=== PATIENT | male | born 1940 | race African-American/Black ===

== ENCOUNTER 2019-06-03 10:12 | Emergency (ER) | payer OTHER ==
[2019-06-03 10:44] LABS: Absolute Lymphocytes (CBC) 0.8 K/uL (0.7-4.9); Basophils % 0.7 % (0-1.3); Hematocrit 41.6 % (39.6-49.0); Lymphocytes % 20.6 % (15.3-44.8); MPV 8.3 fL (7.6-11.3); RBC Red Blood Cell Count 4.59 M/uL (4.33-5.43)
[2019-06-03 10:47] LABS: Protime INR 0.91
--- NOTE | 2019-06-03 10:59 | RAD REPORT ---
EXAM DESCRIPTION: David Single View06/03/2019 10:49 am CLINICAL HISTORY: Chest pain COMPARISON: 2012 FINDINGS: The lungs appear clear of acute infiltrate. The heart is normal size. Aorta is tortuous/ectatic IMPRESSION: No acute abnormalities displayed
[2019-06-03 11:03] LABS: ALT/SGPT 24 U/L (12-78); AST/SGOT 21 U/L (15-37); Alkaline Phosphatase 86 U/L (45-117); BUN Blood Urea Nitrogen 17 mg/dL (7-18); Bicarbonate 29 mmol/L (21-32); Bilirubin Direct 0.1 mg/dL (0-0.2); Bilirubin Total 0.4 mg/dL (0.2-1.0); Glucose Level 97 mg/dL (74-106); Magnesium 2.1 mg/dL (1.8-2.4); NT PRO-BNP 19 pg/mL (<450); Potassium 3.8 mmol/L (3.5-5.1); Protein, Total 8.6 g/dL (6.4-8.2); Sodium Level 141 mmol/L (136-145); Troponin (Emerg Dept Use Only) < 0.02 ng/mL (0.0-0.045)
--- NOTE | 2019-06-03 11:56 | RAD REPORT ---
EXAM DESCRIPTION: CT - Angio Aorta For Dissection - 06/03/2019 11:42 am CLINICAL HISTORY: Chest pain radiating to the back. CHEST PAIN COMPARISON: THORAX W CONTRAST dated 11/12/2012; Chest Single View dated 06/03/2019 TECHNIQUE: CT angiography of the aorta was performed with MIPs. All CT scans are performed using dose optimization technique as appropriate and may include automated exposure control or mA/KV adjustment according to patient size. FINDINGS: A left aortic arch is present with bovine branching pattern of the great vessels.No acute aortic finding is seen such as aneurysm, penetrating ulcer or dissection. The celiac axis, SMA, NILES and renal arteries demonstrate mild atheromatous plaquing at the origins but are patent. Main pulmonary artery appears mildly enlarged measuring 4.7 cm, which could indicate pulmonary arteri al hypertension. No pulmonary embolism is seen. Mild linear subsegmental atelectasis is present in the right lung base. No focal infiltrate detected. Multiple small liver cysts are present.No aggressive liver lesion or biliary dilatation. Cholelithias is.The spleen, pancreas, adrenal glands and kidneys are within normal limits for arterial phase imagi ng. No bowel obstruction, free fluid or abscess.Normal appendix.No pathologic enlarged lymphadenopathy id entified.Small fat containing right inguinal hernia. Moderate lumbar degenerative changes. IMPRESSION: No acute aortic finding is demonstrated. Pulmonary arterial hypertension is a possibility.
--- NOTE | 2019-06-03 12:04 | ER ---
Nurse's Notes [facility] Name: Joe Mckay Age: 79 yrs Sex: Male : 1940 Arrival Date: 06/03/2019 Time: 10:13 Bed 17 Private MD: Diagnosis: Chest pain, unspecified;Cholelithiasis Presentation: 06/03 10:14 Presenting complaint: Patient states: midsternal chest pain since last night. Denies sv SOB. [facility], [facility] was done over there. Transition of care: patient was not received from another setting of care. Onset of symptoms was June 02, 2019. Risk Assessment: Do you want to hurt yourself or someone else? Patient reports no desire to harm self or others. Care prior to arrival: Medication(s) given: ASA, 325 mg. 10:14 Method Of Arrival: Ambulatory sv 10:14 Acuity: ROBB 2 sv 10:51 Initial Sepsis Screen: Does the patient meet any 2 criteria? No. Patient's initial ca1 sepsis screen is negative. Does the patient have a suspected source of infection? No. Patient's initial sepsis screen is negative. Historical: - Allergies: 10:15 No Known Allergies; sv - PMHx: 10:15 Hypertension; sv - PSHx: 10:15 None; sv - Immunization history:: Adult Immunizations up to date. - Social history:: Smoking status: Patient/guardian denies using tobacco. - Ebola Screening: : Patient negative for fever greater than or equal to 101.5 degrees Fahrenheit, and additional compatible Ebola Virus Disease symptoms Patient denies exposure to infectious person Patient denies travel to an Ebola-affected area in the 21 days before illness onset No symptoms or risks identified at this time. Screenin:20 Abuse screen: Denies threats or abuse. Denies injuries from another. Nutritional ca1 screening: No deficits noted. Tuberculosis screening: No symptoms or risk factors identified. Fall Risk IV access (20 points). Assessment: 10:20 General: Appears in no apparent distress. comfortable, Behavior is calm, cooperative, ca1 appropriate for age. Pain: Complains of pain in mid-sternal area Pain does not radiate. Pain currently is 0 out of 10 on a pain scale. at worst was 8 out of 10 on a pain scale. Quality of pain is described as pressure, Pain began 1 day ago. Is intermittent, Also complains of no other associated symptoms. Neuro: Level of Consciousness is awake, alert, obeys commands, Oriented to person, place, time, situation, Appropriate for age. Cardiovascular: Heart tones S1 S2 present Capillary refill < 3 seconds Patient's skin is warm and dry. Rhythm is sinus rhythm. Respiratory: Airway is patent Respiratory effort is even, unlabored, Respiratory pattern is regular, symmetrical, Breath sounds are clear bilaterally. GI: Abdomen is flat, non-distended, Bowel sounds present X 4 quads. Abd is soft and non tender X 4 quads. : No deficits noted. No signs and/or symptoms were reported regarding the genitourinary system. EENT: No deficits noted. No signs and/or symptoms were reported regarding the EENT system. Derm: Skin is intact, is healthy with good turgor, Skin is pink, warm \T\ dry. Musculoskeletal: Circulation, motion, and sensation intact. Capillary refill < 3 seconds. 11:22 Reassessment: Patient appears in no apparent distress at this time. Patient and/or ca1 family updated on plan of care and expected duration. Pain level reassessed. Patient is alert, oriented x 3, equal unlabored respirations, skin warm/dry/pink. 12:25 Reassessment: Patient appears in no apparent distress at this time. Patient is alert, ca1 oriented x 3, equal unlabored respirations, skin warm/dry/pink. Vital Signs: 10:14 Temp 97.5; sv 10:15 BP 167 / 93; Pulse 77; Resp 16; Pulse Ox 100% ; Weight 63.5 kg; Height 5 ft. 10 in. sv (177.80 cm); 11:22 BP 146 / 86; Pulse 71; Resp 18 S; Pulse Ox 98% on R/A; ca1 12:25 BP 135 / 87; Pulse 69; Resp 17 S; Pulse Ox 98% on R/A; ca1 10:15 Body Mass Index 20.09 (63.50 kg, 177.80 cm) sv ED Course: 10:13 Patient arrived in ED. as 10:15 Triage completed. sv 10:16 Arm band placed on. sv 10:18 Flaca Galarza, AKIKO is Primary Nurse. ca1 10:20 Patient has correct armband on for positive identification. Placed in gown. Bed in low ca1 position. Call light in reach. Side rails up X 1. school lunch monitor on. Pulse ox on. NIBP on. Warm blanket given. 10:30 Lashonda Schaffer F[facility]-C is [facility]. snw 10:30 Lc Waggoner MD is Attending Physician. snw 10:31 Inserted saline lock: 22 gauge in right antecubital area, using aseptic technique. ca1 Blood collected. 10:31 Initial lab(s) drawn, by me, sent to lab. ca1 10:48 No provider procedures requiring assistance completed. ca1 10:49 XRAY Chest (1 view) In Process Unspecified. EDMS 11:42 CT Aorta for Dissection In Process Unspecified. EDMS 12:43 IV discontinued, intact, bleeding controlled, No redness/swelling at site. Pressure ca1 dressing applied. Administered Medications: No medications were administered Outcome: 12:03 Discharge ordered by . snw 12:43 Discharged to home ambulatory. ca1 12:43 Condition: stable 12:43 Discharge instructions given to patient, Instructed on discharge instructions, follow up and referral plans. medication usage, Demonstrated understanding of instructions, follow-up care, medications, Prescriptions given X 1. 12:44 Patient left the ED. ca1 Signatures: Dispatcher [employer] Lizz Olson, RN RN Lashonda Schaffer FNP-C FNP-Alessandra Bella as Flaca Galarza RN RN ca1 Corrections: (The following items were deleted from the chart) 10:16 10:14 Acuity: ROBB 3 sv sv 10:18 10:14 Presenting complaint: Patient states: midsternal chest pain since last night. sv sv 10:18 10:14 Care prior to arrival: None. sv sv 10:48 10:48 No provider procedures requiring assistance completed. ca1 ca1 10:48 10:48 Inserted saline lock: ca1 ca1
--- NOTE | 2019-06-03 12:04 | EDPHYS ---
Physician Documentation [facility] Name: Joe Mckay Age: 79 yrs Sex: Male : 1940 Arrival Date: 06/03/2019 Time: 10:13 Bed 17 Private MD: ED Physician Lc Waggoner HPI: 06/03 11:35 This 79 yrs old Black Male presents to ER via Ambulatory with complaints of Chest Pain. snw 11:35 Onset: The symptoms/episode began/occurred acutely. Associated signs and symptoms: The snw patient has no apparent associated signs or symptoms. Modifying factors: The patient symptoms are alleviated by ibuprofen, rest, awoke with soreness but "nothing like last night". The patient has experienced a previous episode, approximately 30 years ago. went to [place] [facility] this am and was sent for evaluation. Historical: - Allergies: 10:15 No Known Allergies; sv - PMHx: 10:15 Hypertension; sv - PSHx: 10:15 None; sv - Immunization history:: Adult Immunizations up to date. - Social history:: Smoking status: Patient/guardian denies using tobacco. - Ebola Screening: : Patient negative for fever greater than or equal to 101.5 degrees Fahrenheit, and additional compatible Ebola Virus Disease symptoms Patient denies exposure to infectious person Patient denies travel to an Ebola-affected area in the 21 days before illness onset No symptoms or risks identified at this time. ROS: 11:34 Constitutional: Negative for fever, chills, and weight loss, Eyes: Negative for injury, snw pain, redness, and discharge, ENT: Negative for injury, pain, and discharge, Neck: Negative for injury, pain, and swelling, Respiratory: Negative for shortness of breath, cough, wheezing, and pleuritic chest pain, Abdomen/GI: Negative for abdominal pain, nausea, vomiting, diarrhea, and constipation, Back: Negative for injury and pain, : Negative for injury, bleeding, discharge, and swelling, MS/Extremity: Negative for injury and deformity, Skin: Negative for injury, rash, and discoloration, Neuro: Negative for headache, weakness, numbness, tingling, and seizure, Psych: Negative for depression, anxiety, suicide ideation, homicidal ideation, and hallucinations. 11:34 Cardiovascular: Positive for chest pain, "felt like I got hit in the chest with an axe". Exam: 11:34 Constitutional: This is a well developed, well nourished patient who is awake, alert, snw and in no acute distress. Head/Face: Normocephalic, atraumatic. Eyes: Pupils equal round and reactive to light, extra-ocular motions intact. Lids and lashes normal. Conjunctiva and sclera are non-icteric and not injected. Cornea within normal limits. Periorbital areas with no swelling, redness, or edema. ENT: Nares patent. No nasal discharge, no septal abnormalities noted. Tympanic membranes are normal and external auditory canals are clear. Oropharynx with no redness, swelling, or masses, exudates, or evidence of obstruction, uvula midline. Mucous membranes moist. Neck: Trachea midline, no thyromegaly or masses palpated, and no cervical lymphadenopathy. Supple, full range of motion without nuchal rigidity, or vertebral point tenderness. No Meningismus. Chest/axilla: Normal chest wall appearance and motion. Nontender with no deformity. No lesions are appreciated. Cardiovascular: Regular rate and rhythm with a normal S1 and S2. No gallops, murmurs, or rubs. Normal PMI, no JVD. No pulse deficits. Respiratory: Lungs have equal breath sounds bilaterally, clear to auscultation and percussion. No rales, rhonchi or wheezes noted. No increased work of breathing, no retractions or nasal flaring. Abdomen/GI: Soft, non-tender, with normal bowel sounds. No distension or tympany. No guarding or rebound. No evidence of tenderness throughout. Back: No spinal tenderness. No costovertebral tenderness. Full range of motion. Skin: Warm, dry with normal turgor. Normal color with no rashes, no lesions, and no evidence of cellulitis. MS/ Extremity: Pulses equal, no cyanosis. Neurovascular intact. Full, normal range of motion. Neuro: Awake and alert, GCS 15, oriented to person, place, time, and situation. Cranial nerves II-XII grossly intact. Motor strength 5/5 in all extremities. Sensory grossly intact. Cerebellar exam normal. Normal gait. Psych: Awake, alert, with orientation to person, place and time. Behavior, mood, and affect are within normal limits. Vital Signs: 10:14 Temp 97.5; sv 10:15 BP 167 / 93; Pulse 77; Resp 16; Pulse Ox 100% ; Weight 63.5 kg; Height 5 ft. 10 in. sv (177.80 cm); 11:22 BP 146 / 86; Pulse 71; Resp 18 S; Pulse Ox 98% on R/A; ca1 12:25 BP 135 / 87; Pulse 69; Resp 17 S; Pulse Ox 98% on R/A; ca1 10:15 Body Mass Index 20.09 (63.50 kg, 177.80 cm) sv MDM: 10:37 Patient medically screened. julian 11:54 Data reviewed: vital signs, nurses notes. Data interpreted: Pulse oximetry: on room air snw is 98 %. Counseling: I had a detailed discussion with the patient and/or guardian regarding: the historical points, exam findings, and any diagnostic results supporting the discharge/admit diagnosis, the presence of at least one elevated blood pressure reading (>120/80) during this emergency department visit, lab results, radiology results, the need for further work-up and treatment in the hospital. Refusal of service: The patient/guardian displays adequate decision making capability and despite a detailed discussion of alternatives, benefits, risks, and consequences refuses: Admission to the hospital for further work-up and treatment. 11:59 Special discussion: Based on the patient's history, exam, and Dx evaluation, there is snw no indication for emergent intervention or inpatient Tx. It is understood by the patient/guardian that if the Sx's persist or worsen they need to return immediately for re-evaluation. I have referred the patient to see his PCP for further evaluation of high blood pressure. Based on the history and exam findings, there is no indication for further emergent testing or inpatient evaluation. I discussed with the patient/guardian the need to see the financial institution branch manager for further evaluation of the symptoms. I discussed with the patient/guardian the need to see the primary care provider for further evaluation of the symptoms. pt does not wish to be transferred to [place] or admitted locally. Risks discussed and pt voices understanding. Would like to be discharged at this time. Return precautions given. . 06/03 10:19 Order name: Basic Metabolic Panel; Complete Time: 11:23 ca1 06/03 10:19 Order name: CBC with Diff; Complete Time: 10:50 ca1 06/03 10:19 Order name: LFT's; Complete Time: 11:23 06/03 10:19 Order name: Magnesium; Complete Time: 11:23 06/03 10:19 Order name: NT PRO-BNP; Complete Time: 11:23 06/03 10:19 Order name: PT-INR; Complete Time: 10:51 ca1 06/03 10:19 Order name: Troponin (emerg Dept Use Only); Complete Time: 11:23 ca1 06/03 10:19 Order name: XRAY Chest (1 view); Complete Time: 11:23 06/03 10:19 Order name: EKG; Complete Time: 10:22 ca1 06/03 10:19 Order name: Cardiac monitoring; Complete Time: 10:48 ca1 06/03 10:19 Order name: EKG - Nurse/Tech; Complete Time: 10:48 06/03 10:19 Order name: IV Saline Lock; Complete Time: 10:48 ca1 06/03 10:19 Order name: Labs collected and sent; Complete Time: 10:48 ca1 06/03 11:24 Order name: CT Aorta for Dissection; Complete Time: 11:58 snw 06/03 10:19 Order name: O2 Per Protocol; Complete Time: 10:48 ca1 06/03 10:19 Order name: O2 Sat Monitoring; Complete Time: 10:48 ca1 Administered Medications: No medications were administered Disposition: 16:46 Co-signature as Attending Physician, Lc Waggoner MD I agree with the assessment and [facility] plan of care. Disposition: 06/03/19 12:03 Discharged to Home. Impression: Chest pain, unspecified, Cholelithiasis. - Condition is Stable. - Discharge Instructions: Nonspecific Chest Pain, Fat and Cholesterol Restricted Diet, Hypertension, Cholelithiasis, Aspirin and Your Heart. - Prescriptions for Bentyl 20 mg Oral Tablet - take 1 tablet by ORAL route every 6 hours As needed; 20 tablet. - Medication Reconciliation Form, Thank You Letter, Antibiotic Education, Prescription Opioid Use form. - Follow up: Emergency Department; When: As needed; Reason: Worsening of condition. Follow up: Private Physician; When: 2 - 3 days; Reason: Recheck today's complaints, Continuance of care. Signatures: Dispatcher [employer] Lizz Olson RN RN sv Anderson, Corey, MD MD cha Therrien, Shelly, BUTCHER'S ASSISTANT-C BUTCHER'S ASSISTANT-Csnw Flaca Galarza RN RN ca1 Corrections: (The following items were deleted from the chart) 12:44 12:03 06/03/2019 12:03 Discharged to Home. Impression: Chest pain, unspecified; ca1 Cholelithiasis. Condition is Stable. Forms are Medication Reconciliation Form, Thank You Letter, Antibiotic Education, Prescription Opioid Use. Follow up: Emergency Department; When: As needed; Reason: Worsening of condition. Follow up: Private Physician; When: 2 - 3 days; Reason: Recheck today's complaints, Continuance of care. snw
[2019-06-03 12:52] VITALS: TEMP 97.5
[2019-06-03 12:54] VITALS: O2SAT 98
[2019-06-03 12:55] VITALS: BP 135/87
--- NOTE | 2019-06-03 14:43 | EKG ---
Test Date: 2019-06-03 Test Time: 10:32:18 Crisis Therapist: TT MEASUREMENT RESULTS: Intervals: Rate: 74 [place]: 188 QRSD: 102 QT: 392 QTc: 435 [place]: P: 59 [place]: 188 QRS: 42 T: 57 INTERPRETIVE STATEMENTS: Normal sinus rhythm Normal ECG Compared to ECG 12/02/2000 11:03:00 Sinus bradycardia no longer present Left ventricular hypertrophy no longer present T-wave abnormality no longer present Electronically Signed On 06-03-19 14:42:41 CONSUMER RELATIONS COMPLAINT CLERK by Dajuan Alcaraz
== END 2019-06-03 12:44 | disposition home or self-care (01) ==
LOC: ER 10:12
DX: K80.20 Calculus of gallbladder without cholecystitis without obstruction (principal); I10 Essential (primary) hypertension
CPT/HCPCS: 93005; 85025; 80048; 36415; 83735; 85610; 80076; 84484; 83880; 71275; 74175; 71045; 99284; Q9967

== ENCOUNTER 2024-09-17 10:40 | Emergency (ER) | payer OTHER, SELFPAY ==
[2024-09-17] MEDS ORDERED: NA CHLORIDE 0.9% 1,000 ML ONE (11:26)
[2024-09-17] MEDS ORDERED: ONDANSETRON 4 MG/2 ML VIAL ONE (11:26)
[2024-09-17] MEDS ORDERED: FAMOTIDINE 20 MG/2 ML VIAL IV ONE (11:26)
[2024-09-17] MEDS ORDERED: ACETAMINOPHEN 325 MG TABLET ONE (11:26)
[2024-09-17 11:32] LABS: Absolute Lymphocytes (CBC) 0.6 K/uL (0.7-4.9); Absolute Monocytes 0.5 K/uL (0.1-1.3); Absolute Neutrophil 3.2 K/uL (1.8-8.0); Basophils % 0.8 % (0-1.3); Eosinophils % 1.1 % (0-4.4); Hemoglobin 13.2 g/dL (13.6-17.9); Lymphocytes % 13.3 % (15.3-44.8); MCH 31.2 pg (27.0-35.0); MCHC 34.6 g/dL (32.0-36.0); MCV 90.3 fL (80-100); MPV 7.3 fL (7.6-11.3); Monocytes % 12.1 % (3.3-12.3); Neutrophils % 72.7 % (41.7-73.7); Nucleated Red Blood Cells % 0.1 % (0-0); Platelets 244 thou/uL (152-406); RBC Red Blood Cell Count 4.21 M/uL (4.33-5.43); Red Cell Distribution Width 13.7 % (12.1-15.2)
[2024-09-17 11:51] LABS: Specific Gravity > 1.030 (1.005-1.030); Sqamous Epithelial <5 /HPF (None Seen); Urine Bacteria None Seen /HPF (<20); Urine Bilirubin NEGATIVE (Negative); Urine Blood Negative (Negative); Urine Clarity Clear (Clear); Urine Color Yellow (Yellow); Urine Culture Reflex Order NOT NEEDED; Urine Glucose 4+ (Over) (Negative); Urine Ketones NEGATIVE (Negative); Urine Microscopic Reflex YN ORDER UMIC; Urine Mucus Slight /HPF (None Seen); Urine Nitrite NEGATIVE (Negative); Urine Protein TRACE (Negative); Urine RBC <5 /HPF (None Seen); Urine Urobilinogen Normal (Normal); Urine WBC <5 /HPF (<5); Urine pH 5.5 (5.0-7.0)
[2024-09-17 12:49] LABS: Albumin 3.3 g/dL (3.4-5.0); Albumin/Globulin Ratio 0.8 (1.1-1.8); Anion Gap 9.3 mEq/L (5.0-15.0); Bilirubin Total 0.3 mg/dL (0.2-1.0); Potassium 3.3 mEq/L (3.5-5.1); Protein, Total 7.3 g/dL (6.4-8.2)
--- NOTE | 2024-09-17 13:29 | RAD REPORT ---
EXAMINATION: CT ABDOMEN AND PELVIS WITH CONTRAST CLINICAL INDICATION: ABD PAIN TECHNIQUE: CT abdomen and pelvis was performed, after the administration of IV contrast, as per [facility] protocol. Axial, sagittal and coronal reconstructions were obtained. One or more of the following dose reduction techniques were used: Automated exposure control, adjustment of the mA and k V according to patient size, and iterative reconstruction. Unless otherwise specified, incidental findings do not require dedicated imaging follow-up. COMPARISON: No prior exam. FINDINGS: LOWER CHEST: Mild linear atelectasis in both lung bases. LIVER: Multiple low-density liver lesions are present favoring multiple cysts. No aggressive liver le sions seen. Cholelithiasis. SPLEEN: Normal size. No focal lesion. PANCREAS: No mass, ductal dilation, or oliver-pancreatic fluid. ADRENALS: Normal; no mass. KIDNEYS: Normal size and contour. No hydronephrosis. GASTROINTESTINAL TRACT: No evidence of free air, significant intra-abdominal free fluid, bowel obstru ction or abscess. APPENDIX: Normal appendix. LYMPH NODES: No lymphadenopathy. MUSCULOSKELETAL: Moderate multilevel lumbar degenerative changes. ADDITIONAL FINDINGS: Small fat-containing right inguinal hernia. IMPRESSION: No acute or concerning abnormalities seen in the abdomen or pelvis. Cholelithiasis. Small fat-containing right inguinal hernia.
--- NOTE | 2024-09-17 13:32 | ER ---
Nurse's Notes [facility] Name: Joe Mckay Age: 84 yrs Sex: Male : 1940 Arrival Date: 09/17/2024 Time: 10:40 Bed 16 Private MD: Diagnosis: Unilateral inguinal hernia, without obstruction or gangrene, not specified as recurrent;Abdominal pain, unspecified;Other cholelithiasis without obstruction Presentation: 09/17 10:57 Chief complaint: Patient states: Noticed a lump to R groin 2-3 days ago. Coronavirus ss screen: Client denies travel out of the [place] in the last 14 days. Ebola Screen: Patient denies exposure to infectious person. Patient denies travel to an Ebola-affected area in the 21 days before illness onset. Initial Sepsis Screen: Does the patient meet any 2 criteria? No. Patient's initial sepsis screen is negative. Does the patient have a suspected source of infection? No. Patient's initial sepsis screen is negative. Risk Assessment: Do you want to hurt yourself or someone else? Patient reports no desire to harm self or others. Onset of symptoms was September 16, 2024. 10:57 Method Of Arrival: Ambulatory ss 10:57 Acuity: ROBB 3 ss Historical: - Allergies: 10:58 No Known Allergies; ss - PMHx: 10:58 Hypertension; Diabetes mellitus; high cholesterol; ss - PSHx: 10:58 None; ss - Immunization history:: Adult Immunizations up to date. - Infectious Disease History:: Denies. - Social history:: Smoking status: Patient denies any tobacco usage or history of. - Family history:: not pertinent. Screenin:34 [facility] ED Fall Risk Assessment (Adult) History of falling in the last 3 months, me1 including since admission No falls in past 3 months (0 pts) Confusion or Disorientation No (0 pts) Intoxicated or Sedated No (0 pts) Impaired Gait No (0 pts) Mobility Assist Device Used No (0 pt) Altered Elimination No (0 pt) Score/Fall Risk Level 0 - 2 = Low Risk Maintained a safe environment, Provided non-skid footwear, Hourly rounding (assess needs \T\ fall precautionary measures) done. Abuse screen: Denies threats or abuse. Nutritional screening: No deficits noted. Tuberculosis screening: No symptoms or risk factors identified. Assessment: 11:34 General: Appears in no apparent distress. well groomed, well developed, well nourished, me1 Behavior is calm, cooperative, appropriate for age, Reports Noticed a lump to R groin 2-3 days ago. Pain level varies from just tender to 10/10 at times. Pain: Complains of pain in right femoral area Pain does not radiate. Pain currently is 2 out of 10 on a pain scale. at worst was 10 out of 10 on a pain scale. Quality of pain is described as Pain began 2-3 days ago. Is intermittent. Neuro: Level of Consciousness is awake, alert, obeys commands, Oriented to person, place, time, situation, Appropriate for age. Cardiovascular: Patient's skin is warm and dry. Respiratory: Airway is patent Respiratory effort is even, unlabored, Respiratory pattern is regular, symmetrical. GI: Reports. GI: No signs and/or symptoms were reported involving the gastrointestinal system. : Reports pain in right groin. EENT: No signs and/or symptoms were reported regarding the EENT system. Derm: Skin is intact, is healthy with good turgor, Skin is pink, warm \T\ dry. Musculoskeletal: No signs and/or symptoms reported regarding the musculoskeletal system. Vital Signs: 10:57 BP 158 / 91; Pulse 72; Resp 16; Pulse Ox 98% on R/A; Weight 56.25 kg; Height 5 ft. 8 ss in. ; Pain 0/10; 12:00 BP 158 / 88; Pulse 66; Resp 16; Pulse Ox 97% ; me1 13:00 BP 158 / 87; Pulse 65; Resp 15; Pulse Ox 96% ; me1 14:00 BP 155 / 88; Pulse 66; Resp 16; Temp 98.5; Pulse Ox 97% ; me1 10:57 Body Mass Index 18.85 (56.25 kg, 172.72 cm) ss 10:57 Pain Scale: Adult ss [place] Coma Score: 11:06 Eye Response: spontaneous(4). Motor Response: obeys commands(6). Verbal Response: julian oriented(5). Total: 15. ED Course: 10:42 Patient arrived in ED. im 10:43 Lc Waggoner MD is Attending Physician. julian 10:58 Triage completed. ss 10:58 Arm band placed on right wrist. ss 11:07 Eddleman, Dorene, RN is Primary Nurse. me1 11: CBC with Diff Sent. me1 : CMP Sent. me1 11: Lipase Sent. me1 : Initial lab(s) drawn, by me, sent to lab. Inserted saline lock: 22 gauge in left me1 antecubital area, using aseptic technique. 11:34 Patient has correct armband on for positive identification. Bed in low position. Call me1 light in reach. Side rails up X2. Provided Education on: POC. Verbalized understanding.. Client placed on continuous cardiac and pulse oximetry monitoring. NIBP monitoring applied. Pulse ox on. NIBP on. :34 No provider procedures requiring assistance completed. me1 13: CT Abd/Pelvis - IV Contrast Only In Process Unspecified. EDMS 13:30 Dereck Serrano MD is Referral Physician. [facility] 14:05 IV discontinued, intact, bleeding controlled, No redness/swelling at site. Pressure me1 dressing applied. Administered Medications: 11: Drug: Famotidine IVP 20 mg IVP once; dilute with 10 mL 0.9% NaCl; give over 2 minutes me1 Route: IVP; Site: left antecubital; 14:00 Follow up: Response: No adverse reaction me1 11:31 Drug: Ondansetron IVP 4 mg IVP once; over 2 minutes Route: IVP; Site: left antecubital; me1 14:00 Follow up: Response: No adverse reaction; Nausea is decreased me1 11: Drug: NS 0.9% IV 1000 ml IV at 1 bolus Per protocol; to be given as a bolus over 60 me1 minutes Route: IV; Rate: 1 bolus; Site: left antecubital; 14:00 Follow up: Response: No adverse reaction; IV Status: Completed infusion; IV Intake: me1 1000ml 11: Drug: Acetaminophen PO 650 mg PO once Route: PO; me1 14:00 Follow up: Response: No adverse reaction; Pain is decreased me1 Medication: 14:02 VIS not applicable for this client. me1 Intake: 14:00 IV: 1000ml; Total: 1000ml. me1 Outcome: 13:31 Discharge ordered by . [facility] 14:05 Discharged to home ambulatory, ut1 14:05 Condition: stable 14:05 Discharge instructions given to patient, Instructed on discharge instructions, follow up and referral plans. Demonstrated understanding of instructions, follow-up care, 14:06 Patient left the ED. me1 Signatures: Dispatcher [employer] Lc Alejandre MD MD cha Blanchard, Shelby, RN RN Anna Lopez Michelle, RN RN me1 Corrections: (The following items were deleted from the chart) 11:33 10:57 Chief complaint: Patient states: Noticed a lump to R groin 2-3 days ago me1
--- NOTE | 2024-09-17 13:32 | EDPHYS ---
Physician Documentation [facility] Name: Joe Mckay Age: 84 yrs Sex: Male : 1940 Arrival Date: 09/17/2024 Time: 10:40 Bed 16 Private MD: ED Physician Lc Waggoner HPI: 09/17 11:04 This 84 yrs old Black Male presents to ER via Ambulatory with complaints of Groin julian hernia. 11:04 The patient presents with abdominal pain right lower quadrant. Onset: The julian symptoms/episode began/occurred 1 day(s) ago. The patient presents with swelling, that is mild, of the right inguinal area. Onset: The symptoms/episode began/occurred 1 day(s) ago. Modifying factors: The symptoms are alleviated by nothing, the symptoms are aggravated by nothing. Associated signs and symptoms: The patient has no apparent associated signs or symptoms. Associated signs and symptoms: none. Modifying factors: The symptoms are alleviated by nothing. Severity of symptoms: At their worst the symptoms were in the emergency department the symptoms are unchanged. Historical: - Allergies: 10:58 No Known Allergies; ss - PMHx: 10:58 Hypertension; Diabetes mellitus; high cholesterol; ss - PSHx: 10:58 None; ss - Immunization history:: Adult Immunizations up to date. - Infectious Disease History:: Denies. - Social history:: Smoking status: Patient denies any tobacco usage or history of. - Family history:: not pertinent. ROS: 11:04 Constitutional: Negative for fever, chills, and weight loss, Eyes: Negative for injury, julian pain, redness, and discharge, ENT: Negative for injury, pain, and discharge, Neck: Negative for injury, pain, and swelling, Cardiovascular: Negative for chest pain, palpitations, and edema, Respiratory: Negative for shortness of breath, cough, wheezing, and pleuritic chest pain, Abdomen/GI: Negative for abdominal pain, nausea, vomiting, diarrhea, and constipation, Back: Negative for injury and pain, : Negative for injury, bleeding, discharge, and swelling, MS/Extremity: Negative for injury and deformity, Skin: Negative for injury, rash, and discoloration, Neuro: Negative for headache, weakness, numbness, tingling, and seizure, Psych: Negative for depression, anxiety, suicide ideation, homicidal ideation, and hallucinations, Allergy/Immunology: Negative for hives, rash, and allergies, Endocrine: Negative for neck swelling, polydipsia, polyuria, polyphagia, and marked weight changes, Hematologic/Lymphatic: Negative for swollen nodes, abnormal bleeding, and unusual bruising, Exam: 11:06 Constitutional: This is a well developed, well nourished patient who is awake, alert, julian and in no acute distress. Head/Face: Normocephalic, atraumatic. Eyes: Pupils equal round and reactive to light, extra-ocular motions intact. Lids and lashes normal. Conjunctiva and sclera are non-icteric and not injected. Cornea within normal limits. Periorbital areas with no swelling, redness, or edema. ENT: Nares patent. No nasal discharge, no septal abnormalities noted. Tympanic membranes are normal and external auditory canals are clear. Oropharynx with no redness, swelling, or masses, exudates, or evidence of obstruction, uvula midline. Mucous membranes moist. Neck: Trachea midline, no thyromegaly or masses palpated, and no cervical lymphadenopathy. Supple, full range of motion without nuchal rigidity, or vertebral point tenderness. No Meningismus. Chest/axilla: Normal chest wall appearance and motion. Nontender with no deformity. No lesions are appreciated. Cardiovascular: Regular rate and rhythm with a normal S1 and S2. No gallops, murmurs, or rubs. Normal PMI, no JVD. No pulse deficits. Respiratory: Lungs have equal breath sounds bilaterally, clear to auscultation and percussion. No rales, rhonchi or wheezes noted. No increased work of breathing, no retractions or nasal flaring. Abdomen/GI: Soft, non-tender, with normal bowel sounds. No distension or tympany. No guarding or rebound. No evidence of tenderness throughout. Back: No spinal tenderness. No costovertebral tenderness. Full range of motion. Male : Normal genitalia with no discharge or lesions. Skin: Warm, dry with normal turgor. Normal color with no rashes, no lesions, and no evidence of cellulitis. MS/ Extremity: Pulses equal, no cyanosis. Neurovascular intact. Full, normal range of motion., bilateral aka Neuro: Awake and alert, GCS 15, oriented to person, place, time, and situation. Cranial nerves II-XII grossly intact. Motor strength 5/5 in all extremities. Sensory grossly intact. Cerebellar exam normal. Normal gait. Psych: Awake, alert, with orientation to person, place and time. Behavior, mood, and affect are within normal limits. 11:06 : CVA tenderness, is absent, Male external genitalia: normal, no abrasion, no discharge, no erythema, no injury, no swelling, no tenderness, no evidence of ulceration, Bladder: is normal, Sexual behavior: the patient is not sexually active, Vital Signs: 10:57 BP 158 / 91; Pulse 72; Resp 16; Pulse Ox 98% on R/A; Weight 56.25 kg; Height 5 ft. 8 ss in. ; Pain 0/10; 12:00 BP 158 / 88; Pulse 66; Resp 16; Pulse Ox 97% ; me1 13:00 BP 158 / 87; Pulse 65; Resp 15; Pulse Ox 96% ; me1 14:00 BP 155 / 88; Pulse 66; Resp 16; Temp 98.5; Pulse Ox 97% ; me1 10:57 Body Mass Index 18.85 (56.25 kg, 172.72 cm) ss 10:57 Pain Scale: Adult ss [facility] Coma Score: 11:06 Eye Response: spontaneous(4). Motor Response: obeys commands(6). Verbal Response: julian oriented(5). Total: 15. MDM: 10:43 Medical Screening Exam initiated julian 11:06 Differential diagnosis: nonspecific abdominal pain, UTI, urinary retention, julian prostatitis, urethritis, Cholelithiasis, Mesenteric ischemia or infarction, non-specific abd pain, Peptic Ulcer Disease, Prostatitis, Pyelonephritis, urinary tract infection. Data reviewed: vital signs, nurses notes, lab test result(s), radiologic studies, CT scan. Consideration of Admission/Observation Escalation of care including admission/observation considered. I considered the following discharge prescriptions or medication management in the emergency department Medications were administered in the Emergency Department. See MAR. Independent interpretation of the following test(s) in the Emergency Department CT Scan: My interpretation is ct abd pel. Test considered but Not performed: Ultrasound no abd usg. Historians other than the Patient: pt well informed. Care significantly affected by the following chronic conditions: Diabetes, Hypertension, high chlesterol. 09/17 10:47 Order name: CBC with Diff; Complete Time: 11:56 [facility] 09/17 10:47 Order name: CMP; Complete Time: 13:15 julian 09/17 10:47 Order name: Lipase; Complete Time: 13:15 [facility] 09/17 10:47 Order name: Urinalysis w/ reflexes; Complete Time: 11:56 julian 09/17 10:47 Order name: CT Abd/Pelvis - IV Contrast Only; Complete Time: 13:30 julian 09/17 10:47 Order name: IV Saline Lock; Complete Time: 11:22 julian 09/17 10:47 Order name: Labs collected and sent; Complete Time: 11:22 julian 09/17 11:38 Order name: Misc. Order: RECOLLECT - GREEN; Complete Time: 14:00 09/17 13:15 Order name: PO challenge: juice; Complete Time: 14:00 [facility] Administered Medications: 11:31 Drug: Famotidine IVP 20 mg IVP once; dilute with 10 mL 0.9% NaCl; give over 2 minutes me1 Route: IVP; Site: left antecubital; 14:00 Follow up: Response: No adverse reaction me1 11:31 Drug: Ondansetron IVP 4 mg IVP once; over 2 minutes Route: IVP; Site: left antecubital; me1 14:00 Follow up: Response: No adverse reaction; Nausea is decreased me1 11:31 Drug: NS 0.9% IV 1000 ml IV at 1 bolus Per protocol; to be given as a bolus over 60 me1 minutes Route: IV; Rate: 1 bolus; Site: left antecubital; 14:00 Follow up: Response: No adverse reaction; IV Status: Completed infusion; IV Intake: me1 1000ml 11:31 Drug: Acetaminophen PO 650 mg PO once Route: PO; me1 14:00 Follow up: Response: No adverse reaction; Pain is decreased me1 Disposition Summary: 09/17/24 13:31 Discharge Ordered Notes: Location: Home julian Problem: new julian Symptoms: have improved julian Condition: Stable julian Diagnosis - Unilateral inguinal hernia, without obstruction or gangrene, not specified as julian recurrent - Abdominal pain, unspecified julian - Other cholelithiasis without obstruction julian Followup: julian - With: Private Physician - When: 2 - 3 days - Reason: Recheck today's complaints, Continuance of care, Re-evaluation by your physician Followup: julian - With: Dereck Serrano MD - When: 2 - 3 days - Reason: Recheck today's complaints, Re-evaluation by your physician Discharge Instructions: - Discharge Summary Sheet julian - Abdominal Pain, Adult julian - Hernia, Adult julian - Inguinal Hernia, Adult, [id number] julian - Cholelithiasis julian - Cholelithiasis, [id number] julian - Abdominal Pain, Adult, [id number] julian Forms: - Medication Reconciliation Form julian - Antibiotic Education julian - Prescription Opioid Use julian - Patient Portal Instructions julian - Leadership Thank You Letter julian Signatures: Dispatcher [employer] Alejandre MD MD cha Blanchard, Shelby, RN RN ss Dorene Gardner RN RN me1 Rickey Hamilton
[2024-09-17 14:33] VITALS: BP 155/88; TEMP 98.5; O2SAT 97
== END 2024-09-17 14:06 | disposition home or self-care (01) ==
LOC: ER 10:40
DX: K80.80 Other cholelithiasis without obstruction (principal); K40.90 Unilateral inguinal hernia, without obstruction or gangrene, not specified as recurrent
CPT/HCPCS: 36415; 74177; 80053; 81001; 83690; 85025; 96361; 96374; 96375; 99284; J2405; J7030; Q9967